=== PATIENT | female | born 1950 | race American Indian/Alaskan Native ===

== ENCOUNTER 2020-02-14 12:55 | Outpatient (CLI) | payer MEDICARE ==
--- NOTE | 2020-02-14 14:00 | XRay Report ---
LUMBAR SPINE 5 VIEWS INDICATION / CLINICAL INFORMATION: BACK PAIN. COMPARISON: None available. FINDINGS: Marked narrowing of the L3-4 disc space. No other significant skeletal abnormality. Alignment is norm al. Signer Name: Etienne Ball MD FACR Signed: 02/14/2020 1:55 PM Workstation Name: [id number]
== END 2020-02-14 12:56 | disposition home or self-care (01) ==
LOC: XRAY 12:55
PROVIDERS: ATTEND Orthopaedic Surgery
DX: M47.816 Spondylosis without myelopathy or radiculopathy, lumbar region (principal)
CPT/HCPCS: 72110

== ENCOUNTER 2020-11-20 11:04 | Outpatient (CLI) | payer MEDICARE ==
--- NOTE | 2020-11-20 13:59 | XRay Report ---
XR shoulder 2+V RT INDICATION / CLINICAL INFORMATION: PAIN IN RIGHT SHOULDER. COMPARISON: None available. FINDINGS: No acute fracture. Normal alignment. Joint spaces are preserved. No destructive osseous lesion or s uspicious periosteal reaction. Impression: 1.No acute fracture. Signer Name: Thomas Ramires MD Signed: 11/20/2020 1:55 PM Workstation Name: [email or web address]
== END 2020-11-20 11:05 | disposition home or self-care (01) ==
LOC: XRAY 11:04
PROVIDERS: ATTEND Orthopaedic Surgery
DX: M25.511 Pain in right shoulder (principal)

== ENCOUNTER 2021-01-06 06:40 | Outpatient (CLI) | payer MEDICARE ==
--- NOTE | 2021-01-06 08:53 | Magnetic Resonance Report ---
MRI RIGHT SHOULDER WITHOUT CONTRAST INDICATION / CLINICAL INFORMATION: PAIN RIGHT SHOULDER. TECHNIQUE: Multiplanar, multisequence MR images were obtained. No contrast used. COMPARISON: None available. FINDINGS: SUPRASPINATUS: Mild increased edema and attenuation however no full-thickness tear is seen. INFRASPINATUS: No significant abnormality. SUBSCAPULARIS: No significant abnormality. BICEPS TENDON, LONG HEAD: No significant abnormality. GLENOID LABRUM: There may be some mild degenerative change of the superior labrum at the bicipital la bral junction. ARTICULAR CARTILAGE: Cartilage thinning and loss of the humeral head and glenoid JOINT SPACE AND CAPSULE: Trace joint effusion ACROMION and A.C. JOINT: Mild AC degenerative change SUBACROMIAL/SUBDELTOID SPACE: Small moderate fluid in subacromial subdeltoid space BONES: Glenohumeral degenerative change No fracture. No osseous lesion. SOFT TISSUES: No significant abnormality. ADDITIONAL FINDINGS: None. IMPRESSION: 1. Glenohumeral and AC degenerative change. Mild chondromalacia throughout the glenoid and humeral h ead. 2. There may be tendinosis with degenerative change at the supraspinous however no definite full-thic kness tear. 3. Trace joint effusion with trace fluid in the subacromial space Signer Name: Cristino Fraser MD Signed: 01/06/2021 8:48 AM Workstation Name: [id number]
== END 2021-01-06 06:41 | disposition home or self-care (01) ==
LOC: MRI 06:40
PROVIDERS: ATTEND Orthopaedic Surgery
DX: M19.011 Primary osteoarthritis, right shoulder (principal); M25.411 Effusion, right shoulder; M94.211 Chondromalacia, right shoulder